=== PATIENT | female | born 1995 | race Caucasian/White ===

== ENCOUNTER 2020-03-21 12:46 | Outpatient (RCR) | payer OTHER, SELFPAY | END 2020-03-21 23:59 | LOC: NS 12:46 | PROVIDERS: Visit Provider Nurse Practitioner Family | DX: Z71.3 Dietary counseling and surveillance (principal); E66.9 Obesity, unspecified | CPT/HCPCS: 97802 ==

== ENCOUNTER 2020-04-11 14:49 | Outpatient (RCR) | payer OTHER, SELFPAY | END 2020-04-21 23:59 | LOC: NS 14:49 | PROVIDERS: Visit Provider Nurse Practitioner Family | DX: Z71.3 Dietary counseling and surveillance (principal); E66.9 Obesity, unspecified | CPT/HCPCS: 97803 ==

== ENCOUNTER 2020-05-22 16:00 | Outpatient (RCR) | payer OTHER, SELFPAY | END 2020-05-22 23:59 | LOC: NS 16:00 | PROVIDERS: Visit Provider Nurse Practitioner Family | DX: Z71.3 Dietary counseling and surveillance (principal); E66.9 Obesity, unspecified | CPT/HCPCS: 97803 ==

== ENCOUNTER 2020-06-08 16:01 | Outpatient (RCR) | payer OTHER, SELFPAY | END 2020-06-21 23:59 | LOC: NS 16:01 | PROVIDERS: Visit Provider Nurse Practitioner Family | DX: Z71.3 Dietary counseling and surveillance (principal); E66.9 Obesity, unspecified | CPT/HCPCS: 97803 ==

== ENCOUNTER 2020-06-28 16:31 | Outpatient (RCR) | payer OTHER, MEDICAID, SELFPAY | END 2020-06-28 23:59 | disposition home or self-care (01) | LOC: NS 16:31 | PROVIDERS: Visit Provider Nurse Practitioner Family | DX: Z71.3 Dietary counseling and surveillance (principal); E66.9 Obesity, unspecified | CPT/HCPCS: 97803 ==